=== PATIENT | female | born 1965 | race Caucasian/White ===

== ENCOUNTER 2019-04-10 12:16 | Emergency (ER) | payer MEDICAID ==
[~2019-04-10] VITALS: Ht 160 cm; Wt 69.0 kg
[~2019-04-10 12:16] MED LIST: BUPR150T18 PO; CEPH-443 PO; HYDR-4011 PO; LORA-441 PO; ONDA4TAB95 PO
[2019-04-10 12:20] VITALS: BP 137/63; PULSE 98; RESP 20; Ht 160 cm; Wt 69.0 kg
[2019-04-10] MEDS ORDERED: LIDOCAINE 1% (MDV) 20 ML INJ SC ONE (13:00)
== END 2019-04-10 13:23 | disposition home or self-care (01) ==
LOC: FTE 12:16
DX: S91.202A Unspecified open wound of left great toe with damage to nail, initial encounter (principal); W22.03XA Walked into furniture, initial encounter; Y92.9 Unspecified place or not applicable
CPT/HCPCS: 11765; Z7502; Z7610

== ENCOUNTER 2019-04-14 11:50 | Emergency (ER) | payer MEDICAID, OTHER ==
[~2019-04-14] VITALS: Ht 157.5 cm; Wt 69.9 kg
[2019-04-14 12:29] VITALS: BP 109/57; PULSE 98; RESP 17; Ht 157.5 cm; Wt 69.9 kg
== END 2019-04-14 13:45 | disposition home or self-care (01) ==
LOC: E/R 11:50
DX: N61.0 Mastitis without abscess (principal)
CPT/HCPCS: 99283